=== PATIENT | female | born 1960 | race Caucasian/White ===

== ENCOUNTER 2023-11-17 11:02 | Observation (INO) | payer OTHER ==
[2023-11-17 11:06] VITALS: BMI 28.7
[2023-11-17 11:57] LABS: BASO % 1.1 % (0-2.0); EOS % 2.1 % (0-4.5); HEMATOCRIT 38.7 % (32.4-45.2); HEMOGLOBIN 12.7 GM/dL (10.7-15.3); LYMPH % 25.2 % (8-40); MCH 31.7 pg (25.7-33.7); MCHC 32.9 g/dl (32.0-36.0); MEAN CELL VOLUME 96.3 fl (80-96); MEAN PLT VOLUME 7.1 fl (7.5-11.1); MONO % 10.7 % (3.8-10.2); NEUT % 60.9 % (42.8-82.8); PLATELET COUNT 308 10^3/uL (134-434); RBC 4.02 M/mm3 (3.60-5.2); RDW 13.2 % (11.6-15.6)
[2023-11-17] MEDS: LACTATED RINGERS SOLUTION 1000 ML INFUS.BAG IV ONE (11:57)
[2023-11-17 12:09] LABS: ACTIVATED PTT 29.3 SECONDS (25.2-36.5); INR 0.95 (0.83-1.09); PROTHROMBIN TIME (PATIENT) 10.7 SEC (9.7-13.0)
[2023-11-17 12:15] LABS: POTASSIUM 4.1 mmol/L (3.5-5.1)
[2023-11-17 12:17] LABS: ALBUMIN 3.6 g/dl (3.4-5.0); CALCIUM 9.3 mg/dL (8.5-10.1)
[2023-11-17 12:18] LABS: BLOOD UREA NITROGEN 12.9 mg/dL (7-18); MAGNESIUM 2.2 mg/dL (1.8-2.4)
[2023-11-17 12:21] LABS: PHOSPHOROUS 3.5 mg/dL (2.5-4.9)
[2023-11-17 12:22] LABS: CREATININE 0.8 mg/dL (0.55-1.3)
[2023-11-17 12:24] LABS: BILIRUBIN,TOTAL 0.3 mg/dL (0.2-1); TOT PROT 6.7 g/dl (6.4-8.2)
[2023-11-17 13:42] LABS: PH,URINE 5.5 (5.0-8.0); URINE APPEARANCE CLEAR; URINE BILIRUBIN NEGATIVE (NEGATIVE); URINE COLOR YELLOW; URINE GLUCOSE (UA) NEGATIVE (NEGATIVE); URINE KETONE NEGATIVE (NEGATIVE); URINE LEUK ESTERASE NEGATIVE (NEGATIVE); URINE NITRITE NEGATIVE (NEGATIVE); URINE PROTEIN NEGATIVE (NEGATIVE); URINE UROBILINOGEN 0.2 mg/dL (0.2-1.0)
[2023-11-18 07:43] LABS: BASO % 0.8 % (0-2.0); EOS % 3.4 % (0-4.5); HEMATOCRIT 36.3 % (32.4-45.2); HEMOGLOBIN 11.9 GM/dL (10.7-15.3); LYMPH % 22.9 % (8-40); MCH 31.6 pg (25.7-33.7); MCHC 32.9 g/dl (32.0-36.0); MEAN CELL VOLUME 95.9 fl (80-96); MEAN PLT VOLUME 7.5 fl (7.5-11.1); MONO % 10.4 % (3.8-10.2); NEUT % 62.5 % (42.8-82.8); PLATELET COUNT 264 10^3/uL (134-434); RBC 3.78 M/mm3 (3.60-5.2); WHITE BLOOD COUNT 6.3 K/mm3 (4.0-10.0)
[2023-11-18 07:56] LABS: POTASSIUM 4.4 mmol/L (3.5-5.1)
[2023-11-18 08:04] LABS: CALCIUM 8.7 mg/dL (8.5-10.1); CREATININE 0.7 mg/dL (0.55-1.3)
[2023-11-18 08:05] LABS: BLOOD UREA NITROGEN 16.6 mg/dL (7-18)
[2023-11-18 08:22] VITALS: RESP 17; TEMP 98
[2023-11-18 15:20] VITALS: BP 112/87; PULSE 61
== END 2023-11-18 15:22 | disposition home or self-care (01) ==
LOC: JER 11:02 → JERBED 13:38
PROVIDERS: ADMIT Internal Medicine; ATTEND Internal Medicine
PROC: 3E0337Z Introduction of Electrolytic and Water Balance Substance into Peripheral Vein, Percutaneous Approach (ICD-10-PCS; principal; 2023-11-17)
DX: R07.89 Other chest pain (principal); R42 Dizziness and giddiness; Z85.038 Personal history of other malignant neoplasm of large intestine; F17.210 Nicotine dependence, cigarettes, uncomplicated
CPT/HCPCS: 0241U-QW; 36415; 70450-TC; 71045-TC-FY; 80048; 80053; 81003; 82550; 82607; 82962; 83036; 83735; 84100; 84443; 84484; 85025; 85610; 85730; 86850; 86900; 86901; 87086; 93005; 93010; 93306-TC; 96360; 99285-25; G0378

== ENCOUNTER 2024-01-10 01:08 | Emergency (ER) | payer OTHER ==
[2024-01-10 01:25] VITALS: BMI 28.7
[2024-01-10 02:33] VITALS: PULSE 64
[2024-01-10] MEDS ORDERED: ONDANSETRON 4 MG/2 ML VIAL ONE (02:38)
[2024-01-10] MEDS ORDERED: ACETAMINOPHEN INJECTION 100 ML ONE (02:38)
[2024-01-10] MEDS ORDERED: FAMOTIDINE 20 MG/50 ML IVPB 20 MG/50 ML MG IVPB ONE (02:38)
[2024-01-10] MEDS: FAMOTIDINE 20 MG/50 ML IVPB 20 MG/50 ML MG IVPB ONE (02:58)
[2024-01-10] MEDS: ACETAMINOPHEN 1000 MG/100 ML BAG IVPB ONE (02:58)
[2024-01-10] MEDS: ONDANSETRON 4 MG/2 ML VIAL IVPUSH ONE (02:59)
[2024-01-10 03:05] LABS: BASO % 0.4 % (0-2.0); EOS % 0.3 % (0-4.5); HEMOGLOBIN 13.2 GM/dL (10.7-15.3); LYMPH % 6.3 % (8-40); MCH 31.4 pg (25.7-33.7); MEAN PLT VOLUME 6.7 fl (7.5-11.1); MONO % 3.3 % (3.8-10.2); NEUT % 89.7 % (42.8-82.8); PLATELET COUNT 359 10^3/uL (134-434); RBC 4.21 M/mm3 (3.60-5.2); RDW 13.2 % (11.6-15.6); WHITE BLOOD COUNT 13.7 K/mm3 (4.0-10.0)
[2024-01-10 03:27] LABS: POTASSIUM 4.3 mmol/L (3.5-5.1)
[2024-01-10 03:29] LABS: CALCIUM 9.8 mg/dL (8.5-10.1)
[2024-01-10 03:30] LABS: ALBUMIN 4.1 g/dl (3.4-5.0); BLOOD UREA NITROGEN 11.3 mg/dL (7-18); MAGNESIUM 2.3 mg/dL (1.8-2.4)
[2024-01-10 03:32] LABS: CREATININE 0.9 mg/dL (0.55-1.3); PHOSPHOROUS 3.4 mg/dL (2.5-4.9)
[2024-01-10 03:34] LABS: BILIRUBIN,TOTAL 0.3 mg/dL (0.2-1); TOT PROT 7.6 g/dl (6.4-8.2)
[2024-01-10 04:20] LABS: HIV INTERPRETATION NEGATIVE (NEGATIVE)
[2024-01-10 06:12] VITALS: BP 128/80; RESP 20; TEMP 97.5
== END 2024-01-10 06:33 | disposition home or self-care (01) ==
LOC: JER 01:08
PROC: 3E033GC Introduction of Other Therapeutic Substance into Peripheral Vein, Percutaneous Approach (ICD-10-PCS; principal; 2024-01-10)
PROC: 3E033GC Introduction of Other Therapeutic Substance into Peripheral Vein, Percutaneous Approach (ICD-10-PCS; 2024-01-10)
PROC: 3E033NZ Introduction of Analgesics, Hypnotics, Sedatives into Peripheral Vein, Percutaneous Approach (ICD-10-PCS; 2024-01-10)
DX: R10.13 Epigastric pain (principal); R11.2 Nausea with vomiting, unspecified; R19.7 Diarrhea, unspecified
CPT/HCPCS: 36415; 74177-TC; 80053; 83690; 83735; 84100; 85025; 86803; 87389; 93005; 93010; 99285-25; J0131; Q9967

== ENCOUNTER 2024-12-23 03:02 | Emergency (ER) | payer OTHER ==
[2024-12-23 03:15] VITALS: BMI 31.3
[2024-12-23 04:08] LABS: MCHC 31.7 g/dl (32.2-35.5); MEAN CELL VOLUME 97.2 fl (79.4-94.8); MEAN PLT VOLUME 9.2 fl (9.4-12.3); RDW 12.9 % (12.4-16.4)
[2024-12-23] MEDS ORDERED: ACETAMINOPHEN 325 MG TABLET (FP) ONE (05:59)
[2024-12-23] MEDS: ACETAMINOPHEN 500 MG TABLET (FP) PO ONE (06:02)
[2024-12-23 06:07] VITALS: BP 154/90; PULSE 59; RESP 19; TEMP 98
[2024-12-23 06:22] LABS: GLUCOSE,RANDOM 100.0 mg/dL (74-106)
[2024-12-23 06:23] LABS: CO2 20.0 mmol/L (21-32); CREATININE 0.82 mg/dL (0.55-1.3); TOT PROT 6.2 g/dl (6.4-8.2)
[2024-12-23 06:24] LABS: ALK PHOS 68.0 U/L (40-150); SGOT/AST 17.0 U/L (5-34); SGPT/ALT 13.0 U/L (0-55)
== END 2024-12-23 06:28 | disposition home or self-care (01) ==
LOC: JER 03:02
DX: R07.89 Other chest pain (principal); R42 Dizziness and giddiness; R51.9 Headache, unspecified; E86.0 Dehydration; I95.1 Orthostatic hypotension; D64.9 Anemia, unspecified
CPT/HCPCS: 36415; 71046-TC-FY; 80053; 83735; 84484; 85025; 93005; 93010; 99285-25